=== PATIENT | female | born 1940 | race Caucasian/White ===

== ENCOUNTER 2017-01-11 16:20 | Inpatient (IN) | payer OTHER ==
--- NOTE | ~2017-01-11 | CR72 ---
[facility] A Service of [facility] & [facility] RADIOLOGY TEXT RESULTS PATIENT: TIARA MONAE LOCATION: [facility] 317- : 38 UNIT #: [id number] AGE: [address]: Harleen Alanis MD SEX: F ORDER DR: [id number] [address] [address] [id number] E MR#: [id number] Acc #: [id number] NAME: TIARA MONAE : 1940 SEX: F STUDY DATE/TIME: 01/11/2017 17:47 UNIT: SED ROOM: STUDY DESCRIPTION: CR Chest Single View Portable Attending Physician: Judith Crowe M.D. Ordering Physician: Judith Crowe M.D. Primary Care Physician: Sweta Meek M.D. MEDICAL IMAGING REPORT This report is preliminary unless electronic signature is present. EXAM Single view chest INDICATION Shortness of air for 1 month. Hypoxic. FINDINGS Single portable AP view chest compared to 11/24/2016. The heart is enlarged. There is a right lower lobe or right middle lobe airspace opacity that has developed in the interval. No pleural effusion. IMPRESSION Development of a right middle lobe or right lower lobe airspace opacity. Followup radiograph is recommended. Dictated by... Jeffrey Brown M.D. THIS IS AN ELECTRONICALLY VERIFIED REPORT Jeffrey Brown M.D. at 01/12/2017 8:44 AM MARLENE/joni TD: 01/12/2017 01:25 JOB #: [id number] MEDICAL IMAGING REPORT Page 1 of 1
--- NOTE | ~2017-01-11 | US85 ---
[facility] A Service of [facility] & [facility] RADIOLOGY TEXT RESULTS PATIENT: TIARA MONAE LOCATION: [facility] 317- : 38 UNIT #: [id number] AGE: [address]: Sandy Olmstead MD SEX: F ORDER DR: [id number] [facility] [address] [place], [place] [address] [id number] I MR#: [id number] Acc #: [id number] NAME: TIARA MONAE : 1940 SEX: F STUDY DATE/TIME: 01/12/2017 16:07 UNIT: [address] ROOM: [facility] STUDY DESCRIPTION: LE Veins Unilat or Ltd Stdy Attending Physician: Sandy Olmstead M.D. Ordering Physician: Fidelina Figueroa M.D. Primary Care Physician: Sweta Meek M.D. MEDICAL IMAGING REPORT This report is preliminary unless electronic signature is present EXAM Left lower extremity venous duplex 01/12/2017 HISTORY Left lower extremity pain status post left knee replacement 3 weeks ago. Congestive heart failure. Evaluate for deep vein thrombosis left lower extremity. TECHNIQUE Venous ultrasound examination of the left lower extremity was performed using grayscale, spectral Doppler and color flow Doppler imaging. FINDINGS The examination is negative. There is no evidence of left lower extremity deep venous thrombus from the groin to the lower calf. Visualized greater saphenous vein is also patent. IMPRESSION Negative examination. No evidence of left lower extremity deep venous thrombosis. Dictated by... Scott Parham M.D. THIS IS AN ELECTRONICALLY VERIFIED REPORT Scott Parham M.D. at 01/14/2017 8:19 AM Sai TD: 01/12/2017 18:24 JOB #: [id number] MEDICAL IMAGING REPORT Page 1 of 1 COPY
--- NOTE | ~2017-01-11 | HP ---
Unit #: [id number] #: [id number] Patient: TIARA MONAE [id number] [address] [place], [place] [address] [id number] I MR#: [id number] NAME: TIARA MONAE. ROOM: 317 Age: 76 Sex: F Admission Date: 01/11/2017 : 1940 Attending Physician: Harleen Alanis M.D. Primary Care Physician: Sweta Meek M.D. HISTORY AND PHYSICAL CHIEF COMPLAINT Dyspnea on exertion. HISTORY This 76-year-old female, with chronic kidney disease, hypertension, history of nonsustained ventricular tachycardia with last ejection fraction of 49% on Cardiolite stress test 2012, was transferred from [facility] emergency department for increasing shortness of breath. The patient states that over the past year she notes shortness of breath. She underwent a left total knee replacement a month ago at [facility] and states that her shortness of breath has worsened, particularly with exertion. Denies chest pain with the above. Has been experiencing increasing left leg pain and more recently redness over the anterior aspect of the left leg. Denies cough with the above, fevers, sweats or chills. She presented to [facility] emergency department late yesterday where a chest x-ray was suspicious for a right lower lobe pneumonia. She was treated with Duo-Nebs, given 40 mg of IV Lasix, Zithromax, Rocephin, 5 mg of Percocet and ultimately a therapeutic dose of Lovenox. A CTA could not be performed due to chronic kidney disease. Here, she is being given vancomycin and Tobramycin along with Zosyn x1 dose by the [facility] physician who gave initial orders. On examination, her lungs are fairly clear. She, however, does have redness over the anterior aspect of the left leg with quite a bit of left leg pain. PAST MEDICAL HISTORY 1. Possible COPD. 2. Diet controlled AODM. 3. Chronic kidney disease. 4. Hypertension. 5. Longstanding history of chronic back pain, status post numerous back surgeries. 6. Nonsustained ventricular tachycardia. Last Cardiolite stress test 2012 - ejection fraction 49%. No ischemia. 7. Depression. 8. Hypothyroidism. 9. Peripheral vascular disease. 10. Right foot surgery. 11. Hysterectomy. 12. Gastric bypass surgery. 13. Negative colonoscopy in 2013. 14. Ventral hernia repair. 15. Left total knee replacement last month. ALLERGIES Unit #: [id number] #: [id number] Patient: TIARA MONAE. HOME MEDICATIONS I have a Med Rec sheet but I am unsure how these medication doses and names were obtained. What is listed is: 1. Effexor XR 150 mg q. a.m. 2. Synthroid 0.125 mg daily. 3. Lopressor 25 mg b.i.d. 4. Neurontin 800 mg b.i.d. 5. Zanaflex 4 mg b.i.d. 6. Crestor 10 mg q. h.s. 7. Ultram 50 mg q.6 hours as needed. 8. Lasix 40 mg q. a.m. 9. Trazodone 100 mg q. h.s. 10. Vitamin D 50,000 units daily. 11. Xanax 0.5 mg p.r.n. 12. Flonase nasal spray daily. 13. Lyrica 50 mg q. h.s. 14. Celebrex 200 mg daily. 15. Aspirin 81 mg daily. 16. Wellbutrin 150 mg b.i.d. FAMILY HISTORY CAD and lung cancer. SOCIAL HISTORY The patient lives with her . She is a lifelong nonsmoker, does not drink alcohol. REVIEW OF SYSTEMS Notable for increasing left leg pain, recent left knee surgery, worsening dyspnea on exertion, chronic kidney disease, hypertension, nonsustained ventricular tachycardia, depression, hypothyroidism, peripheral vascular disease, above mentioned surgeries. All other systems were reviewed and are otherwise negative. PHYSICAL EXAMINATION GENERAL APPEARANCE: Uncomfortable appearing 76-year-old female. VITAL SIGNS: Temperature has not yet been obtained. Pulse 73, respirations 20, blood pressure 155/68, O2 saturation 97% on room air. HEENT: Eyes PERRLA. Extraocular muscles are intact. Pharynx is benign. NECK: Supple without adenopathy or thyromegaly. CHEST: Actually fairly clear at present. CARDIAC: Normal S1 and S2. Soft systolic murmur heard throughout. ABDOMEN: Bowel sounds are present. Well-healed scars. Nontender. No hepatosplenomegaly or masses. EXTREMITIES: Notable for erythema over the left anterior left leg, both the delgadillo and just above the knee. Some tenderness left calf as well. Pedal pulses are present. NEUROLOGIC: The patient is awake, alert, oriented. Cranial nerves are intact. Equal strength throughout. DIAGNOSTIC STUDIES LABORATORY: Admission labs - hematocrit is 31.5, down from 33.8 some years ago. Normal white count, platelet count and MCV. INR is 1.4, PTT is 28.8. SMA-12 - GFR is 48.1, albumin is 3, alk. phos. 94, BNP is 2100. Unit #: [id number] #: [id number] Patient: TIARA MONAE Cardiac markers are negative. IMAGING: Chest x-ray - right middle lobe versus lower lobe opacities. CARDIOVASCULAR: EKG - sinus rhythm, rate 74, and some nonspecific ST wave abnormalities. ASSESSMENT 1. Recent dyspnea on exertion, rule out congestive heart failure, rule out pulmonary embolus: No cough with the above that would suggest pneumonia. 2. Questionable cellulitis of the left anterior leg: The patient is status post total knee replacement 01/2015. 3. History of nonsustained ventricular tachycardia, on beta blockers, with last cardiac stress test revealing an ejection fraction of 49% but no ischemia in 2012. 4. Chronic kidney disease. 5. Hypertension. 6. Depression. 7. Degenerative joint disease. 8. Hypothyroidism. PLANS 1. IV Lasix was given earlier. Will obtain an echo in the morning. 2. Continue vancomycin for now but will hold other antibiotics. 3. Check procalcitonin level. 4. Obtain V/Q scan and venous Dopplers of the legs along with D-dimer. Continue Lovenox until PE is ruled out. 5. Old records. 6. Verify home medicines. Dictated by Fidelina Figueroa M.D. AML/df TD: 01/12/2017 06:21 JOB #: [id number] HISTORY AND PHYSICAL Page 1 of 1 X Fidelina Figueroa MD HISTORY AND PHYSICAL
--- NOTE | ~2017-01-11 | BMI ---
[facility] Nutrition Therapy DATE: 01/12/17 Patient: TIARA MONAE Physician: GLENN Address: [address] [place] [address] Room/Bed: [address] [place] [address], Zip: [place] [address] Admit Date: 01/11/17 Date of : 38 Height: 5 2 Weight: 219 99.4 HIGH BMI NOTE: DX: 76 y/o female admitted for CHF ANTHROPOMETRICS: ht: 5'2" wt: 219# (99 kg) BMI: 40 DIET: 2g Na+ INTERVENTION: 1. 2g Na+ diet RECOMMENDATIONS: 1. Add healthy heart diet to current 2g Na+ diet in order to promote gradual weight loss towards a healthy BMI (19.0-25.0) or +/-10% IBW. RD will f/u per protocol. Respectfully, ADE PINEDO, internal audit senior manager Shaina Romo MS, RD, LD Food and Nutritional Services [facility] cc: client file
--- NOTE | ~2017-01-11 | DS ---
Unit #: [id number] #: [id number] Patient: TIARA MONAE [id number] [address] [address] [id number] I MR#: [id number] NAME: TIARA MONAE ROOM: 317 Age: 76 Sex: F Admission Date: 01/12/2017 : 1940 Discharge Date: 01/14/2017 Attending Physician: Sandy Olmstead M.D. Primary Care Physician: Sweta Meek M.D. DISCHARGE SUMMARY PRINCIPAL DIAGNOSES 1. Acute exacerbation of chronic systolic congestive heart failure with ejection fraction of 37%. 2. Acute hypoxic respiratory failure, secondary to #1, now resolved. 3. Severe pulmonary hypertension. 4. Severe mitral regurgitation. 5. Chronic diastolic congestive heart failure, grade 2 without exacerbation. 6. Mild left lower extremity cellulitis. 7. Left lower extremity edema consistent with venous stasis. 8. Chronic kidney disease stage 2 with baseline creatinine approximately 1.2. 9. Hypertension. 10. Moderate aortic regurgitation. 11. Morbid obesity. 12. Deconditioning. 13. Probable obstructive sleep apnea. 14. Hypothyroidism. 15. Diabetes mellitus type 2, diet controlled. 16. Questionable underlying chronic obstructive pulmonary disease. 17. Chronic back pain. 18. Depression. 19. Peripheral vascular disease. [employer] Dr. Rogers, Cardiology. PROCEDURES 1. Two-dimensional echocardiogram on January 12, 2017 with ejection fraction of 37%. Pseudonormalization consistent with grade 2 diastolic dysfunction noted. Mild aortic stenosis. Moderate aortic regurgitation. Severe mitral regurgitation noted. Right ventricular systolic pressure 60-65 mmHg. 2. V/Q lung scan which is low probability for PE. 3. Left lower extremity venous Doppler which is negative for DVT. 4. Chest x-ray on January 11, 2017, with questionable right lower lobe edema. CLINCIAL HISTORY AND HOSPITAL COURSE Ms. Monae is a 76-year-old female, who presents to the emergency department with dyspnea on exertion. Please refer to H and P for further details. In the emergency department, she was put on antibiotics for questionable pneumonia. However, she was afebrile and did not have any evidence of leukocytosis. Lung examination was relatively clear. Unit #: [id number] #: [id number] Patient: TIARA MONAE However, her BNP was found to be elevated at greater than 2000. The patient was subsequently admitted. Antibiotics for pneumonia were discontinued upon admission. She did have a very mild left lower leg cellulitis which has been controlled on Keflex. Will continue a short course of antibiotics. She has remained afebrile throughout hospitalization. In regard to patient's dyspnea, again this is most consistent with pulmonary edema. A 2D echo was done with results as noted. I suspect her dyspnea is multifactorial including some CHF, some valvular dysfunction, and her significant pulmonary hypertension. She has been placed on diuretics with good output and clinically is much improved. Her very mild hypoxia has resolved but she continues to use oxygen because it makes her feel better. Patient is significantly deconditioned and recently left rehab and essentially did no therapy upon return home. She is hesitant to return to rehab now, but she is going to be discharged to rehab. DISCHARGE CONDITION Stable. DISCHARGE STATUS Discharge to rehab. DISCHARGE MEDICATIONS 1. Flonase 0.05% nasal spray two puffs per nostril daily. 2. Gabapentin 800 mg b.i.d. 3. Effexor XR 150 mg daily. 4. Trazodone 100 mg at bedtime. 5. Xanax 0.5 mg daily p.r.n. for anxiety. 6. Coreg 6.25 mg b.i.d. 7. Keflex 500 mg p.o. t.i.d. for four more days. 8. Lasix 40 mg b.i.d. 9. Crestor 10 mg daily. 10. Lisinopril 5 mg daily. 11. Aspirin 81 mg daily. 12. Tramadol 50 mg p.o. q.6 hours p.r.n. for pain. 13. Spironolactone 25 mg daily. 14. Klor-Con 20 mEq daily. 15. Zanaflex 4 mg p.o. b.i.d. p.r.n. for muscle spasm. 16. Levothyroxine 125 mcg daily. 17. Vitamin D 50,000 units daily. DISCHARGE INSTRUCTIONS 1. The patient was instructed to follow a heart healthy diet and a constant carb diet. 2. She can increase her activity as tolerated. FOLLOWUP The patient will follow up with Dr. Rogers as instructed. She will follow up with her primary care provider, Sweta Meek, upon discharge from rehab. Time spent on discharge, 48 minutes. Unit #: [id number] #: [id number] Patient: TIARA MONAE Dictated by... Suzanna Barney/delmi TD: 01/14/2017 11:26 JOB #: [id number] DISCHARGE SUMMARY Page 1 of 1 X Sandy Olmstead MD X DISCHARGE SUMMARY
--- NOTE | ~2017-01-11 | CO ---
Unit #: [id number] #: [id number] Patient: TIARA MONAE [id number] [address] [place], [place] [address] [id number] I MR#: [id number] NAME: TIARA MONAE ROOM: 317 Age: 76 Sex: F Admission Date: 01/12/2017 : 1940 Attending Physician: Sandy Olmstead M.D. Primary Care Physician: Sweta Meek M.D. Consultation Date: 01/12/2017 CONSULTATION REPORT REASON FOR CONSULTATION Heart failure. HISTORY OF PRESENT ILLNESS This is a 76-year-old white female, who presented to the hospital with a complaint of shortness of breath. The patient states she has been short of breath for the last 6 months, but did not tell anyone. Her shortness of breath has worsened, where she sleeps on 3 to 4 pillows. She reports paroxysmal nocturnal dyspnea and leg edema. Has occasional substernal chest heaviness that is non-radiating to her neck, arm, or jaw. She reports weakness. She has risk factors for ischemic heart disease includes hypertension, hyperlipidemia, and diabetes. Prior to total knee replacement in November, the patient had a Lexiscan Cardiolite stress test where she was found to have no ischemia, but her ejection fraction was 37%. She has not been told to follow a fluid restriction. She did well after her surgery, but her shortness of breath worsened. In the emergency room, she was found to have an elevated BNP of 2097. Chest x-ray was concerning with questionable pneumonia for which she has been treated. Echocardiogram this admission found the patient to have an ejection fraction of 37% with grade 2 diastolic dysfunction with pulmonary hypertension and severe mitral regurgitation. There was moderate aortic regurgitation. She was hospitalized at age 4 for about a month for which she was treated for possible rheumatic fever. PAST MEDICAL HISTORY 1. Lexiscan Cardiolite stress test on 12/09/2016 at [facility] which showed an ejection fraction of 37%. There was moderate-sized inferior defect with no reversibility and no ischemia. 2. 2D echocardiogram on 01/12/2017 showed an ejection fraction of 37% with grade 2 diastolic dysfunction. There was moderate aortic regurgitation, severe mitral regurgitation, mild aortic stenosis, and mild tricuspid regurgitation. Right ventricular systolic pressure 60 to 65 mmHg. 3. Hypertension. 4. Hyperlipidemia. 5. Diabetes mellitus, type 2. 6. Peripheral vascular disease. 7. Chronic back pain secondary to degenerative joint disease. 8. Morbid obesity. 9. Hypothyroidism. 10. Nonsmoker. PAST SURGICAL HISTORY 1. Ventral hernia repair. Unit #: [id number] #: [id number] Patient: TIARA MONAE 2. Left total knee replacement in 11/2016. 3. Gastric bypass surgery. 4. Hysterectomy. 5. Right foot surgery. SOCIAL HISTORY The patient ambulates with a walker, but mostly sits in a chair all day. She has never smoked. No illicit drug or alcohol use. FAMILY HISTORY Positive for coronary artery disease. ALLERGIES Lipitor. HOME MEDICATIONS Effexor XR 150 mg daily, levothyroxine 0.125 mg daily, Lopressor 25 mg b.i.d., Neurontin 800 mg b.i.d., Zanaflex 4 mg b.i.d., Crestor 10 mg q.h.s., Ultram 50 mg q.6 hours p.r.n., Lasix 40 mg daily, trazodone 100 mg daily, vitamin D 50,000 units daily, Xanax 0.5 mg p.r.n., Flonase nasal spray p.r.n., Lyrica 50 mg q.h.s., Celebrex 200 mg daily, aspirin 81 mg daily, Wellbutrin 150 mg b.i.d. REVIEW OF SYSTEMS CONSTITUTIONAL: Positive for weakness and fatigue. No weight gain or weight loss. No fever or chills. HEENT: No headache, hearing or vision changes, difficulty with swallowing. Negative for dizziness. CARDIOVASCULAR: Has chest heaviness as described in the HPI. Denies palpitations. No paroxysmal nocturnal dyspnea or orthopnea. No syncope or near syncope. RESPIRATORY: Reports dyspnea on exertion. Has occasional nonproductive cough. No hemoptysis. GASTROINTESTINAL: Negative for abdominal pain, nausea, or vomiting. No constipation or melena. EXTREMITIES: Positive for lower extremity edema. PHYSICAL EXAMINATION VITAL SIGNS: Blood pressure 144/67, heart rate 88, temperature 98.2, BMI of 40. GENERAL: This is an obese 76-year-old pale white female, who is in no acute distress. NEUROLOGIC: She is awake, alert, and oriented. There are no focal weaknesses. NECK: Trachea is midline. No thyromegaly or lymphadenopathy. No jugular venous distention. HEART: S1, S2 with a grade 2/6 systolic murmur heard best at the base and at the apex. No gallops or rubs or clicks. Regular rate and rhythm. LUNGS: Diminished breath sounds in both lungs without rales, rhonchi, or wheezes. ABDOMEN: Soft and obese with bowel sounds are present. No organomegaly. EXTREMITIES: With 2+ leg edema. SKIN: Pale and dry. DIAGNOSTIC STUDIES LABORATORY RESULTS: Hemoglobin 9.7, hematocrit 31.4, platelet count 207, white count 8.5. Sodium 140, potassium 3.2, BUN 15, creatinine 1.0, glucose 59. BNP 2097. Troponin less than 0.05 and 0.03. INR 1.4. Unit #: [id number] #: [id number] Patient: TIARA MONAE D-dimer 2488. IMAGING STUDIES: Chest x-ray shows right middle lobe airspace opaque densities. CARDIOVASCULAR STUDIES: EKG shows normal sinus rhythm with no acute ischemic changes. IMPRESSION 1. Severe pulmonary hypertension. 2. Severe mitral regurgitation. 3. Acute new onset systolic heart failure. 4. Cardiomyopathy with an ejection fraction of 37%. 5. Probable history of rheumatic heart disease. PLAN 1. We will diuresis the patient with IV diuretics and Aldactone. 2. Start the patient on afterload reduction with lisinopril. We will also start beta-iesha. Metoprolol will be discontinued. 3. Fluid restriction will be ensued. 4. CHF education has been given. The patient has been advised to undergo cardiac rehab, but is currently reluctant. 5. If pulmonary hypertension is partly reversible, may consider mitral valve surgery. 6. We will follow the patient with you. Thank you for allowing us to assist with this patient's care. Dictated by... Saniya Barragan.P.R.N. for Suzanna Tobar/linda TD: 01/14/2017 06:08 JOB #: [id number] CC: Sweta Meek M.D. CONSULTATION REPORT Page 1 of 1 X Freeman Partida APRN CONSULTATION REPORT
--- NOTE | ~2017-01-11 | EKG ---
PATIENT: TIARA MONAE UNIT #: [id number] Ventricular Rate: 74 BPM Atrial Rate: 74 BPM P-R Interval: 154 ms QRS Duration: 98 ms Q-T Interval: 396 ms QTC Calculation(Bezet): 439 ms P [place]: 33 degrees Calculated R [place]: -8 degrees Calculated T [place]: -32 degrees Diagnosis Line: Normal sinus rhythm Diagnosis Line: Left ventricular hypertrophy with repolarization Diagnosis Line: abnormality Diagnosis Line: Abnormal ECG Diagnosis Line: No previous ECGs available Diagnosis Line: Confirmed by ROSARIO REGALADO MD ([id number]) on Diagnosis Line: 01/24/2017 5:08:40 PM INTERPRETING MD: VICTOR M
--- NOTE | ~2017-01-11 | NM69 ---
[facility] A Service of [facility] & [facility] RADIOLOGY TEXT RESULTS PATIENT: TIARA MONAE LOCATION: [facility] 317- : 38 UNIT #: [id number] AGE: [address]: Sandy Olmstead MD SEX: F ORDER DR: [id number] [facility] [address] [place], [place] [address] [id number] I MR#: [id number] Acc #: [id number] NAME: TIARA MONAE : 1940 SEX: F STUDY DATE/TIME: 01/12/2017 10:43 UNIT: [address] ROOM: [facility] STUDY DESCRIPTION: NM Pulm Vent and Perf Attending Physician: Sandy Olmstead M.D. Ordering Physician: Fidelina Figueroa M.D. Primary Care Physician: Sweta Meek M.D. MEDICAL IMAGING REPORT This report is preliminary unless electronic signature is present EXAM Ventilation-perfusion radionuclide lung scan 01/12/2017 HISTORY Short of air. O2 dropping, lungs feel as if they won't fill, swelling all over, "pain in back all the way across on/off for 1 year, working [employer] in middle of right gotten worse in last 6 months". Unable to breathe. TECHNIQUE Following inhalation of 35.1 mCi of technetium-99m aerosolized DTPA and intravenous administration of 6 mCi of technetium-99m MAA, multiple views of thorax obtained. COMPARISON Comparison to chest radiograph dated 01/11/2017. Heterogeneous distribution of radiotracer on perfusion and ventilation images with generally better perfusion than ventilation. There are matching perfusion ventilation defects. No perfusion ventilation mismatches. Study is felt to be low probability for pulmonary embolus. IMPRESSION 1. Low probability for pulmonary embolus. Matching perfusion-ventilation defects. No perfusion-ventilation mismatches. Generally heterogeneous distribution of radiotracer on the perfusion and ventilation images with generally better perfusion than ventilation. If there is ongoing clinical concern for pulmonary thromboembolic disease, consider CT pulmonary angiography if patient is a candidate. Dictated by... Yann Zavala M.D. [facility] A Service of [facility] & [facility] RADIOLOGY TEXT RESULTS PATIENT: TIARA MONAE LOCATION: [facility] 317-01 : 38 UNIT #: [id number] AGE: [address]: Sandy Olmstead MD SEX: F ORDER DR: THIS IS AN ELECTRONICALLY VERIFIED REPORT Yann Zavala M.D. at 01/13/2017 6:42 PM Darrell TD: 01/12/2017 13:15 JOB #: [id number] MEDICAL IMAGING REPORT Page 1 of 1 COPY
[~2017-01-11 16:20] MED LIST: ACETAMINOPHEN PO; AMBIEN CR PO; COLACE PO; CRESTOR10 MG PO; DIFLUCAN PO; EFFEXOR XR PO; EFFEXOR XR150 MG PO; FLEXERIL PO; FLONASE16 GM; FUROSEMIDE40 MG PO; GABAPENTIN600 MG PO; GLUCOPHAGE XR500 MG PO; HUMIBID; LASIX PO; LEVAQUIN750 M1 PO; LOPRESSOR PO; LYRICA50 MG PO; MOBIC PO; NEURONTIN PO; NILSTAT PO; NITROFURANTOIN100 M3 PO; PREDNISONE PO; PROTONIX PO; REGLAN10 MG PO; SYNTHROID PO; TALWIN NX TABLE1 TAB PO; TRAMADOL HCL50 M1 PO; TRAZODONE HCL100 MG PO; TYLOX 5/500 CAP1 CAP PO; VITAMIN D50000 UNIT PO; VYTORIN 10/40 T1 TAB PO; XANAX0.5 M1 PO; ZANAFLEX4 M1 PO; ZESTORETIC 10/11 TAB PO; ZITHROMAX PO; [UNRECOGNIZED DRUG - OTHER] PO
[2017-01-11] MEDS ORDERED: CELECOXIB200 MG PO (16:32)
[2017-01-11] MEDS ORDERED: ALPRAZOLAM0.5 MG (16:32)
[2017-01-11] MEDS ORDERED: ASPIRIN81 M2 PO (16:33)
[2017-01-11] MEDS ORDERED: BUPROPION XL150 MG PO (16:37)
[2017-01-11 17:23] LABS: POC - CKMB 2.2 ng/mL (0.0-7.9); POC - TROPONIN <0.05 ng/mL (<=0.05)
[2017-01-11 17:23] LABS: BASOPHIL# 0.1 X10e3 (0-0.3); BASOPHIL% 0.8 % (0-2.5); EOSINOPHIL# 0.4 X10e3 (0-0.7); HEMATOCRIT 31.5 % (35.0-45.0); LYMPHOCYTE# 1.3 X10e3 (1.0-3.5); LYMPHOCYTE% 18.7 % (17.0-45.0); MEAN CELL VOLUME 87.6 FL (83-96); MEAN CORPUSCULAR HEMOGLOBIN 27.8 PG (28-34); MEAN CORPUSCULAR HGB CONC 31.8 g/dL (30-36); MEAN PLATELET VOLUME 9.4 FL (6.5-11.5); MONOCYTE# 0.7 X10e3 (0-1.0); MONOCYTE% 10.1 % (3.0-12.0); NEUTROPHIL# 4.6 X10e3 (1.5-7.1); NEUTROPHIL% 65.4 % (40-75); PLATELET COUNT 216 X10e3 (140-420); RED BLOOD COUNT 3.59 X10e (3.90-5.30); RED CELL DISTRIBUTION WIDTH 16.6 % (11.0-15.5)
[2017-01-11 17:24] LABS: DIFF IND NO
[2017-01-11 17:34] LABS: INR 1.4; PROTHROMBIN TIME (PATIENT) 15.3 SECONDS (9.5-12.4)
[2017-01-11 17:42] LABS: PARTIAL THROMBOPLASTIN TIME 28.8 SECONDS (25.6-38.1)
[2017-01-11 17:43] LABS: BILIRUBIN, DIRECT 0.2 mg/dL (0.0-0.2); BILIRUBIN,INDIRECT 0.4 mg/dL (0.0-0.9); BILIRUBIN,TOTAL 0.6 mg/dL (0.2-2.0); BUN/CREATININE RATIO 15.45; CREATININE SERUM 1.1 mg/dL (0.6-1.4); GLOM FILT RATE Estimated 48.1 mL/min (>60); POTASSIUM 3.7 mmol/L (3.5-5.1); PROTEIN TOTAL SERUM 6.7 g/dL (6.0-8.3)
[2017-01-11 19:07] LABS: POC - CKMB 1.9 ng/mL (0.0-7.9); POC - TROPONIN <0.05 ng/mL (<=0.05)
[2017-01-12 02:19] LABS: URINE APPEARANCE CLEAR; URINE BILIRUBIN NEG (NEG); URINE BLOOD NEG (NEG); URINE COLOR YELLOW; URINE GLUCOSE NEG (NEG); URINE KETONE NEG (NEG); URINE LEUKOCYTE ESTERASE NEG (NEG); URINE NITRATE NEG (NEG); URINE PROTEIN NEG (NEG); URINE SPECIFIC GRAVITY 1.009 (1.003-1.035); URINE UROBILINOGEN 0.2 MG/DL (NEG)
[2017-01-12 02:23] LABS: CULTURE INDICATED? NO
[2017-01-12 06:21] LABS: HEMATOCRIT 31.4 % (35.0-45.0); HEMOGLOBIN 9.7 gm/dL (12.0-16.0); MEAN CELL VOLUME 88.2 FL (83-96); MEAN CORPUSCULAR HEMOGLOBIN 27.4 PG (28-34); MEAN PLATELET VOLUME 9.6 FL (6.5-11.5); RED BLOOD COUNT 3.56 X10e (3.90-5.30); WHITE BLOOD COUNT 8.5 X10e3 (4.0-10.5)
[2017-01-12 07:36] LABS: PROCALCITONIN <0.05 NG/ML
[2017-01-12 07:50] LABS: BLOOD UREA NITROGEN 15 mg/dL (9-23); CALCIUM SERUM 8.8 mg/dL (8.4-10.2); CARBON DIOXIDE 26 mmol/L (22-31); CHLORIDE 104 mmol/L (100-111); CK TOTAL 68 IU/L (26-140); GLOM FILT RATE Estimated 53.9 mL/min (>60); GLUCOSE FASTING 59 mg/dL (70-110); POTASSIUM 3.2 mmol/L (3.5-5.1); SODIUM 140 mmol/L (135-145)
[2017-01-12 08:09] LABS: %MB 4.4 % (0.0-4.0)
[2017-01-13 07:01] LABS: HEMATOCRIT 32.3 % (35.0-45.0); HEMOGLOBIN 10.1 gm/dL (12.0-16.0); MEAN CELL VOLUME 87.2 FL (83-96); MEAN CORPUSCULAR HEMOGLOBIN 27.1 PG (28-34); MEAN CORPUSCULAR HGB CONC 31.1 g/dL (30-36); MEAN PLATELET VOLUME 9.6 FL (6.5-11.5); RED BLOOD COUNT 3.71 X10e (3.90-5.30); RED CELL DISTRIBUTION WIDTH 16.9 % (11.0-15.5)
[2017-01-13 07:56] LABS: BUN/CREATININE RATIO 10.83; CALCIUM SERUM 8.7 mg/dL (8.4-10.2); CREATININE SERUM 1.2 mg/dL (0.6-1.4); GLOM FILT RATE Estimated 43.3 mL/min (>60); MAGNESIUM 1.3 mg/dL (1.6-3.0); POTASSIUM 3.4 mmol/L (3.5-5.1)
[2017-01-14 06:36] LABS: BUN/CREATININE RATIO 13.63; CALCIUM SERUM 9.2 mg/dL (8.4-10.2); CREATININE SERUM 1.1 mg/dL (0.6-1.4); GLOM FILT RATE Estimated 48.1 mL/min (>60); MAGNESIUM 1.9 mg/dL (1.6-3.0)
== END 2017-01-14 14:06 | DRG 291 ==
LOC: SED 16:20 → C3A PCU 18:52
PROVIDERS: Internal Medicine; Student in an Organized Health Care Education/Training Program
PROC: B246YZZ Ultrasonography of Right and Left Heart using Other Contrast (ICD-10-PCS; principal; 2017-01-12)
DX: I13.0 Hypertensive heart and chronic kidney disease with heart failure and stage 1 through stage 4 chronic kidney disease, or unspecified chronic kidney disease (principal); I50.43 Acute on chronic combined systolic (congestive) and diastolic (congestive) heart failure; J96.01 Acute respiratory failure with hypoxia; Z68.41 Body mass index [BMI] 40.0-44.9, adult; I27.2 Other secondary pulmonary hypertension; L03.116 Cellulitis of left lower limb; E11.51 Type 2 diabetes mellitus with diabetic peripheral angiopathy without gangrene; I42.9 Cardiomyopathy, unspecified; E66.01 Morbid (severe) obesity due to excess calories; E78.5 Hyperlipidemia, unspecified; E11.9 Type 2 diabetes mellitus without complications; Z90.710 Acquired absence of both cervix and uterus; Z96.652 Presence of left artificial knee joint; I08.0 Rheumatic disorders of both mitral and aortic valves; E03.9 Hypothyroidism, unspecified; Z82.49 Family history of ischemic heart disease and other diseases of the circulatory system; Z79.82 Long term (current) use of aspirin; I87.8 Other specified disorders of veins; N18.2 Chronic kidney disease, stage 2 (mild); G47.33 Obstructive sleep apnea (adult) (pediatric); M54.9 Dorsalgia, unspecified; Z80.9 Family history of malignant neoplasm, unspecified
CPT/HCPCS: 36415; 71010; 78582; 80048; 80076; 81003; 82308; 82550; 82553; 83735; 83880; 84443; 84484; 85025; 85027; 85379; 85610; 85730; 92610; 93005; 93306; 93971; 94640; 96365; 96375; 97163; 97167; 97530; 97535; 99285; A9540; A9567; G8978-GP; G8979-GP; G8987-GO; G8988-GO; G8996-GN; G8997-GN; G8998-GN; J0456; J0696; J1650; J1940; J2543; J3260; J3370; J3475

== ENCOUNTER 2017-02-23 16:21 | Emergency (ER) | payer OTHER ==
[~2017-02-23] VITALS: Ht 157.5 cm; Wt 78.5 kg
--- NOTE | ~2017-02-23 | EKG ---
PATIENT: TIARA MONAE UNIT #: [id number] Ventricular Rate: 75 BPM Atrial Rate: 75 BPM P-R Interval: 170 ms QRS Duration: 88 ms Q-T Interval: 386 ms QTC Calculation(Bezet): 431 ms P [place]: 53 degrees Calculated R [place]: -8 degrees Calculated T [place]: 77 degrees Diagnosis Line: Normal sinus rhythm Diagnosis Line: Minimal voltage criteria for LVH, may be normal Diagnosis Line: variant Diagnosis Line: Nonspecific T wave abnormality Diagnosis Line: Abnormal ECG Diagnosis Line: When compared with ECG of 11-JAN-2017 16:52, Diagnosis Line: Nonspecific T wave abnormality no longer evident Diagnosis Line: in Inferior leads Diagnosis Line: Confirmed by CRISTHIAN NAQVI MD ([id number]) on Diagnosis Line: 02/24/2017 8:52:34 PM INTERPRETING MD: DONYA ESCOBAR
--- NOTE | ~2017-02-23 | CR72 ---
[facility]. [facility] A Service of [facility] & [facility] RADIOLOGY TEXT RESULTS PATIENT: TIARA MONEA LOCATION: SED : 38 UNIT #: [id number] AGE: [address]: Mendez Wheeler MD SEX: F ORDER DR: [id number] [address] [id number] MR#: [id number] Acc #: [id number] NAME: TIARA MONAE : 1940 SEX: F STUDY DATE/TIME: 02/23/2017 17:20 UNIT: SED ROOM: STUDY DESCRIPTION: CR Chest Single View Portable Attending Physician: Mendez Wheeler M.D. Ordering Physician: Judith Crowe M.D. Primary Care Physician: Sweta Meek M.D. MEDICAL IMAGING REPORT This report is preliminary unless electronic signature is present. EXAM Portable chest x-ray. HISTORY Lightheaded, low blood pressure checked by home health nurse, dizzy yesterday. Nonsmoker. FINDINGS AP radiograph of the chest is presented. Comparison 01/11/17. Heart normal to upper limits of normal in size. The lungs are moderately well inflated. There is no clear evidence of acute pulmonary disease at this time. Airspace disease seen at the bilateral lung bases, right greater than left, on prior study has resolved. There is no pleural effusion or pneumothorax and no suspicious nodule. The bony structures show no acute abnormality. Dictated by... Yann Zavala M.D. THIS IS AN ELECTRONICALLY VERIFIED REPORT Yann Zavala M.D. at 02/25/2017 7:36 AM DOROTHEA/saida TD: 02/24/2017 07:24 JOB #: [id number] MEDICAL IMAGING REPORT Page 1 of 1
[~2017-02-23 16:21] MED LIST changes: +ALPRAZOLAM0.5 MG; +ASPIRIN81 M2 PO; +BUPROPION XL150 MG PO; +CELECOXIB200 MG PO
[2017-02-23 17:16] LABS: BASOPHIL# 0.1 X10e3 (0-0.3); BASOPHIL% 1.2 % (0-2.5); EOSINOPHIL# 0.4 X10e3 (0-0.7); EOSINOPHIL% 5.7 % (0.0-7.0); HEMATOCRIT 34.1 % (35.0-45.0); HEMOGLOBIN 10.9 gm/dL (12.0-16.0); LYMPHOCYTE# 3.2 X10e3 (1.0-3.5); LYMPHOCYTE% 46.4 % (17.0-45.0); MEAN CELL VOLUME 84.8 FL (83-96); MEAN CORPUSCULAR HEMOGLOBIN 27.2 PG (28-34); MEAN CORPUSCULAR HGB CONC 32.1 g/dL (30-36); MEAN PLATELET VOLUME 9.1 FL (6.5-11.5); MONOCYTE# 0.6 X10e3 (0-1.0); MONOCYTE% 8.6 % (3.0-12.0); NEUTROPHIL# 2.6 X10e3 (1.5-7.1); NEUTROPHIL% 38.1 % (40-75); PLATELET COUNT 229 X10e3 (140-420); RED BLOOD COUNT 4.02 X10e (3.90-5.30); RED CELL DISTRIBUTION WIDTH 18.4 % (11.0-15.5); WHITE BLOOD COUNT 6.8 X10e3 (4.0-10.5)
[2017-02-23 17:24] LABS: DIFF IND NO
[2017-02-23 17:26] LABS: PROTHROMBIN TIME (PATIENT) 11.8 SECONDS (9.5-12.4)
[2017-02-23 17:33] LABS: PARTIAL THROMBOPLASTIN TIME 27.9 SECONDS (25.6-38.1)
[2017-02-23 17:34] LABS: ALBUMIN SERUM 3.4 g/dL (3.5-5.0); ALKALINE PHOSPHATASE 49 U/L (32-92); ALT (SGPT) 11 U/L (10-40); AST (SGOT) 15 U/L (10-42); BILIRUBIN,TOTAL 0.5 mg/dL (0.2-2.0); BLOOD UREA NITROGEN 37 mg/dL (9-23); BUN/CREATININE RATIO 21.76; CALCIUM SERUM 9.2 mg/dL (8.4-10.2); CARBON DIOXIDE 27 mmol/L (22-31); CHLORIDE 98 mmol/L (100-111); CREATININE SERUM 1.7 mg/dL (0.6-1.4); GLOM FILT RATE Estimated 28.4 mL/min (>60); GLUCOSE FASTING 95 mg/dL (70-110); MAGNESIUM 2.1 mg/dL (1.6-3.0); POTASSIUM 4.2 mmol/L (3.5-5.1); PROTEIN TOTAL SERUM 6.5 g/dL (6.0-8.3); SODIUM 131 mmol/L (135-145)
[2017-02-23 17:39] LABS: BILIRUBIN, DIRECT <0.1 mg/dL (0.0-0.2); BILIRUBIN,INDIRECT 0.4 mg/dL (0.0-0.9)
[2017-02-23 18:55] LABS: URINE SOURCE CLEAN CATCH
[2017-02-23 18:58] LABS: URINE APPEARANCE CLEAR; URINE BILIRUBIN NEG (NEG); URINE BLOOD NEG (NEG); URINE COLOR YELLOW; URINE GLUCOSE NEG (NORM); URINE KETONE NEG (NEG); URINE NITRATE NEG (NEG); URINE PH 6.5 (5-8); URINE PROTEIN NEG (NEG); URINE SPECIFIC GRAVITY <=1.005 (1.003-1.035); URINE UROBILINOGEN 0.2 MG/DL (NORM)
[2017-02-23 19:01] LABS: MICRO INDICATED? NO; URINE LEUKOCYTE ESTERASE NEG (NEG)
[2017-02-24 14:49] LABS: POC - CKMB <1.0 ng/mL (0.0-7.9); POC - TROPONIN <0.05 ng/mL (<=0.05)
[2017-02-24 14:55] LABS: POC - CKMB <1.0 ng/mL (0.0-7.9); POC - TROPONIN <0.05 ng/mL (<=0.05)
== END 2017-02-23 23:04 | disposition short-term general hospital (02) ==
LOC: SED 16:21
PROVIDERS: Emergency Medicine; Student in an Organized Health Care Education/Training Program
DX: I95.1 Orthostatic hypotension (principal); E78.5 Hyperlipidemia, unspecified; I50.9 Heart failure, unspecified; E11.9 Type 2 diabetes mellitus without complications; N18.3 Chronic kidney disease, stage 3 (moderate); I13.0 Hypertensive heart and chronic kidney disease with heart failure and stage 1 through stage 4 chronic kidney disease, or unspecified chronic kidney disease; Z88.8 Allergy status to other drugs, medicaments and biological substances; Z79.899 Other long term (current) drug therapy
CPT/HCPCS: 36415; 71010; 80048; 80076; 81003; 82553; 83605; 83735; 83880; 84484; 85025; 85610; 85730; 87040; 93005; 99285